=== PATIENT | female | born 1950 | race Caucasian/White ===

== ENCOUNTER 2023-09-15 10:14 | Day surgery (SDC) | payer MEDICARE ==
[~2023-09-15] VITALS: Ht 157.5 cm; Wt 67.7 kg
[~2023-09-15 10:14] MED LIST: ALBU90OI INH; ATEN50 PO; CARBIDOPA-LEVO1 EA17 PO; CHOL10002 PO; SIMV10 PO; SIMV40 PO; SINEMET 25-1001 EAC1 PO
[2023-09-15] MEDS ORDERED: VITAMIN D5000 UNIT PO (10:30)
[2023-09-15] MEDS ORDERED: Hair, Skin & N1 EACH PO (10:30)
[2023-09-15] MEDS ORDERED: CENTRUM SILVER1 EAC2 (10:30)
[2023-09-15] MEDS ORDERED: OMEGA-3 FISH O1 EAC6 PO (10:31)
[2023-09-15] MEDS ORDERED: B-12500 MC2 PO (10:31)
[2023-09-15] MEDS ORDERED: IBUP400 (10:32)
--- NOTE | 2023-09-15 10:38 | NUR ---
09/15/23 1038 Carri Hutchison IN AT 1033 IJM IN AT 1035 CALL LIGHT AT BEDSIDE
[2023-09-15 11:52] VITALS: BP 101/60
== END 2023-09-15 12:12 | disposition home or self-care (01) ==
LOC: ORSCSDS 10:14
PROVIDERS: Ophthalmology
PROC: 08RJ3JZ Replacement of Right Lens with Synthetic Substitute, Percutaneous Approach (ICD-10-PCS; principal; 2023-09-15 11:30)
DX: H25.13 Age-related nuclear cataract, bilateral (principal); I10 Essential (primary) hypertension; G20.A1 Parkinson's disease without dyskinesia, without mention of fluctuations; Z79.899 Other long term (current) drug therapy
CPT/HCPCS: J2250; J3010; J3301; J7040; V2632

== ENCOUNTER 2023-09-22 12:05 | Day surgery (SDC) | payer MEDICARE ==
[~2023-09-22] VITALS: Ht 157.5 cm; Wt 67.2 kg
[~2023-09-22 12:05] MED LIST changes: +B-12500 MC2 PO; +CENTRUM SILVER1 EAC2; +Hair, Skin & N1 EACH PO; +IBUP400; +OMEGA-3 FISH O1 EAC6 PO; +VITAMIN D5000 UNIT PO
--- NOTE | 2023-09-22 12:54 | NUR ---
09/22/23 1254 Mariah Osborne TETRACAINE PLACED IN LEFT EYE AT 1248 PLEDGET PLACED IN LEFT EYE AT 1251
[2023-09-22 14:15] VITALS: BP 105/62
== END 2023-09-22 14:07 | disposition home or self-care (01) ==
LOC: ORSCSDS 12:05
PROVIDERS: Ophthalmology
PROC: 08RK3JZ Replacement of Left Lens with Synthetic Substitute, Percutaneous Approach (ICD-10-PCS; principal; 2023-09-22 14:00)
DX: H25.12 Age-related nuclear cataract, left eye (principal); Z96.1 Presence of intraocular lens; I10 Essential (primary) hypertension; J45.909 Unspecified asthma, uncomplicated; Z79.899 Other long term (current) drug therapy
CPT/HCPCS: J2250; J3010; J3301; J7040; V2632

== ENCOUNTER → 2024-12-18 | Outpatient (CLI) | payer MEDICARE | END | disposition home or self-care (01) | LOC: LAB SHORT 07:39 → LAB 07:39 | DX: L60.2 Onychogryphosis (principal); B35.1 Tinea unguium | CPT/HCPCS: 88304; 88312 ==